=== PATIENT | male | born 1975 | race American Indian/Alaskan Native ===

== ENCOUNTER 2017-09-28 18:39 | Emergency (ER) | payer MEDICAID ==
--- NOTE | 2017-09-28 22:08 | Emergency Department Report ---
ED Lower Extremity HPI - General Chief Complaint: Extremity Problem,Nontraumatic Stated Complaint: KNEE PAIN Time Seen by Provider: 09/28/17 21:36 Source: patient Mode of arrival: Ambulatory Limitations: No Limitations - History of Present Illness Initial Comments: This is a 42-year-old -[place] male who presents with right knee pain with unknown injury that started last night while at work. Patient pursed reports working last night feeling a pop sensation while squatting down. He continued to work and heard a loud popping sensation on the second time while squatting down. Reports taken off work today because something just does not feel right. Denies currently taking anything for symptom relief. He does not believe this is a work related injury. Does not recall twisting or falling while at work. Denies recent injury, swelling, numbness or tingling, erythema, and warmth. Complaint: knee injury (right knee) -: Last night Injury: Knee: Right Type of Injury: unknown Place: work Severity: moderate Severity scale (0 -10): 6 Improves With: immobilization Worsens With: weight bearing, movement Associated Symptoms: snap/pop sensation, ambulatory - Related Data Previous Rx's Medication Instructions Recorded Last Taken Type Naproxen [Naprosyn TAB] 500 mg PO BID PRN #20 tablet 09/28/17 Unknown Rx Allergies Allergy/AdvReac Type Severity Reaction Status Date / Time No Known Allergies Allergy Unverified 09/28/17 19:19 ED Review of Systems ROS: Stated complaint: KNEE PAIN Other details as noted in HPI Constitutional: denies: chills, fever Respiratory: denies: cough, shortness of breath, wheezing Cardiovascular: denies: chest pain, palpitations Gastrointestinal: denies: abdominal pain, nausea, vomiting, diarrhea Musculoskeletal: arthralgia (right knee pain). denies: back pain, joint swelling Skin: denies: rash, lesions Neurological: denies: headache, weakness, numbness, paresthesias Psychiatric: denies: anxiety, depression ED Past Medical Hx - Past Medical History Previous Medical History?: Yes Additional medical history: cardiac pacemaker - Surgical History Past Surgical History?: Yes Additional Surgical History: cardiac pacemaker - Social History Smoking Status: Current Every Day Smoker Substance Use Type: None - Medications Home Medications: Home Medications Medication Instructions Recorded Confirmed Last Taken Type Naproxen [Naprosyn TAB] 500 mg PO BID PRN #20 tablet 09/28/17 Unknown Rx ED Physical Exam - General Limitations: No Limitations General appearance: alert, in no apparent distress - Respiratory Respiratory exam: Present: normal lung sounds bilaterally. Absent: respiratory distress - Cardiovascular Cardiovascular Exam: Present: regular rate, normal rhythm, normal heart sounds. Absent: systolic murmur, diastolic murmur, rubs, gallop - GI/Abdominal GI/Abdominal exam: Present: soft, normal bowel sounds. Absent: organomegaly, mass - Expanded Lower Extremity Exam Right Hip exam: Present: normal inspection, full ROM Upper Leg exam: Present: normal inspection, full ROM Knee exam: Present: full ROM, pain w/ pronation/supination, full knee extension. Absent: swelling, abrasion, laceration, ecchymosis, deformity, crepidus, erythema, effusion, posterior draw sign, pain/laxity with valgus, pain /laxity with varus Lower Leg exam: Present: normal inspection, full ROM Ankle exam: Present: normal inspection, full ROM Foot/Toe exam: Present: normal inspection, full ROM Neuro vascular tendon exam: Present: no vascular compromise Gait: Positive: observed and normal - Neurological Exam Neurological exam: Present: alert, oriented X3 - Psychiatric Psychiatric exam: Present: normal affect, normal mood - Skin Skin exam: Present: warm, dry, intact, normal color. Absent: rash ED Course Vital Signs 09/28/17 19:17 Temperature 98.0 F Pulse Rate 71 Respiratory 16 Rate Blood Pressure 143/99 O2 Sat by Pulse 98 Oximetry ED Lower Extremity MDM - Radiology Data Radiology results: report reviewed PROCEDURE: Right knee. TECHNIQUE: Three views. HISTORY: Right knee pain. COMPARISON: No prior studies are available for comparison. FINDINGS: The bones appear intact without fracture or dislocation. The joint spaces appear normal. The soft tissues are unremarkable. There is no evidence of a knee effusion. IMPRESSION: No significant abnormality. - Medical Decision Making This is a 42 y.o. male presents with right knee pain that started last night while at work. Patient was examined by me. Vitals are stable. In no acute distress. X-ray of right knee obtained and read by radiologist. No acute findings. Physical findings susceptible of muscle strain. Patient informed of results and given copy of report. Start naproxen and follow-up with primary care provider. He agrees with ER plan. Patient discharged home in stable condition. Follow up with PCP in 2-3 days. Critical care attestation.: If time is entered above; I have spent that time in minutes in the direct care of this critically ill patient, excluding procedure time. ED Disposition Clinical Impression: Right knee pain Qualifiers: Chronicity: acute Qualified Code(s): M25.561 - Pain in right knee Muscle strain of right knee Qualifiers: Encounter type: initial encounter Qualified Code(s): S86.911A - Strain of unspecified muscle(s) and tendon(s) at lower leg level, right leg, initial encounter Disposition: TO HOME OR SELFCARE Is pt being admited?: No Does the pt Need Aspirin: No Condition: Stable Instructions: Muscle Strain (ED), Knee Pain (ED), Knee Exercises (GEN) Additional Instructions: Rest Use ice or heat on affected area for 20 minutes and off for 2 hours. Take pain medication twice a day as needed for pain. Follow up with Primary Care Provider in 2-3 days. Prescriptions: Naproxen [Naprosyn TAB] 500 mg PO BID PRN #20 tablet PRN Reason: Pain Referrals: [facility] [Outside] - 3-5 Days [facility] [Outside] - 3-5 Days [facility] [Outside] - 3-5 Days Time of Disposition: 22:58 Print Language: [place]
--- NOTE | 2017-09-28 22:45 | XRay Report ---
FINAL REPORT PROCEDURE: Right knee. TECHNIQUE: Three views. HISTORY: Right knee pain. COMPARISON: No prior studies are available for comparison. FINDINGS: The bones appear intact without fracture or dislocation. The joint spaces appear normal. The soft tissues are unremarkable. There is no evidence of a knee effusion. IMPRESSION: No significant abnormality.
[2017-09-28 23:01] VITALS: BP 131/92
== END 2017-09-28 23:05 | disposition home or self-care (01) ==
LOC: ED 18:39
DX: S86.911A Strain of unspecified muscle(s) and tendon(s) at lower leg level, right leg, initial encounter (principal); M25.561 Pain in right knee; F17.200 Nicotine dependence, unspecified, uncomplicated; Z95.0 Presence of cardiac pacemaker; X58.XXXA Exposure to other specified factors, initial encounter; Y93.89 Activity, other specified; Y99.8 Other external cause status; Y92.89 Other specified places as the place of occurrence of the external cause

== ENCOUNTER 2017-12-30 22:48 | Inpatient (IN) | payer MEDICAID ==
--- NOTE | 2017-12-30 23:59 | XRay Report ---
FINAL REPORT PROCEDURE: XR CHEST ROUTINE 2V TECHNIQUE: PA and lateral chest radiographs were obtained. CPT 63891 HISTORY: ALEXEI COMPARISON: No prior studies are available for comparison. FINDINGS: Heart: Normal. Mediastinum/Vessels: Mild degree pulmonary venous congestion is noted. Lungs/Pleural space: There is mild degree prominence of interstitial markings. Bony thorax: No acute osseous abnormality. Other: A bipolar cardiac device is noted on the left side with its leads in place IMPRESSION: Findings are most consistent with early CHF..
[2017-12-31] MEDS ORDERED: NITRO-BID 2% TP ONE (03:31)
[2017-12-31 03:48] LABS: Basophils # (Auto) 0.1 K/mm3 (0.0-0.1); Basophils % (Auto) 0.6 % (0.0-1.8); Eosinophils % (Auto) 0.5 % (0.0-4.3); Hemoglobin 14.6 gm/dl (11.8-15.2); Lymphocytes % (Auto) 23.2 % (13.4-35.0); Mean Corpuscular HGB Conc 33 % (32-34); Mean Corpuscular Hemoglobin 31 pg (28-32); Mean Corpuscular Volume 94 fl (84-94); Monocytes # (Auto) 0.8 K/mm3 (0.0-0.8); Monocytes % (Auto) 9.7 % (0.0-7.3); Platelet Count 231 K/mm3 (140-440); Red Blood Count 4.67 M/mm3 (3.65-5.03); Red Cell Distribution Width 13.7 % (13.2-15.2)
[2017-12-31 04:00] LABS: INR 1.08 (0.87-1.13)
[2017-12-31 04:01] LABS: Partial Thromboplastin Time 29.3 Sec. (24.2-36.6)
[2017-12-31 04:04] LABS: Creatine Kinase MB 7.3 ng/mL (0.0-4.0)
[2017-12-31 04:05] LABS: Alanine Aminotransferase 20 units/L (7-56); Albumin 3.6 g/dL (3.9-5); BUN/Creatinine Ratio 8; Blood Urea Nitrogen 7 mg/dL (9-20); Calcium 8.4 mg/dL (8.4-10.2); Hemolysis Index 3
[2017-12-31] MEDS ORDERED: K-DUR PO ONE ×2 (04:36→07:45)
--- NOTE | 2017-12-31 04:38 | Emergency Department Report ---
ED Shortness of Breath HPI - General Chief Complaint: Dyspnea/Respdistress Stated Complaint: SOB/ CHEST PAIN Time Seen by Provider: 12/31/17 03:16 Source: patient Mode of arrival: Ambulatory Limitations: No Limitations - History of Present Illness Initial Comments: 42-year-old male with a past medical history hypertension, previous history of diabetes, and a pacemaker presents to the hospital complaining of shortness of breath 1 week. Patient also having intermittent chest pressure without aggravating or alleviating factors. Patient also complains of worsening orthopnea. No calf tenderness, recent travel, or leg asymmetry. Patient has not taken any medications 1 year since his gyroscope repairer told him everything was okay. Patient stopped the medications on his own. He also states that he lost a lot of weight and thought that caused improvement in his previous conditions. - Related Data Previous Rx's Medication Instructions Recorded Last Taken Type Naproxen [Naprosyn TAB] 500 mg PO BID PRN #20 tablet 09/28/17 Unknown Rx Allergies Allergy/AdvReac Type Severity Reaction Status Date / Time No Known Allergies Allergy Unverified 09/28/17 19:19 ED Review of Systems ROS: Stated complaint: SOB/ CHEST PAIN Other details as noted in HPI Comment: All other systems reviewed and negative ED Past Medical Hx - Past Medical History Previous Medical History?: Yes Hx Hypertension: Yes (noncompliant) Hx Diabetes: Yes (noncompliant with meds) Additional medical history: cardiac pacemaker - Surgical History Past Surgical History?: Yes Additional Surgical History: cardiac pacemaker - Social History Smoking Status: Current Every Day Smoker Substance Use Type: Alcohol - Medications Home Medications: Home Medications Medication Instructions Recorded Confirmed Last Taken Type Naproxen [Naprosyn TAB] 500 mg PO BID PRN #20 tablet 09/28/17 Unknown Rx ED Physical Exam - General Limitations: No Limitations - Other Other exam information: General: No limitations, patient is alert in no acute distress Head exam: Atraumatic, normocephalic Eyes exam: Normal appearance ENT: Moist mucous membrane, normal oropharynx Neck exam: Normal inspection, full range of motion, no meningismus nontender Respiratory exam: Clear to auscultation bilateral, no wheezes, rales, crackles. Mild diminished breath sounds at the base Cardiovascular: Normal rate and rhythm, chest wall nontender Abdomen: Soft, nondistended, and nontender, with normal bowel sounds, no rebound, or guarding Extremity: Full range of motion normal inspection no deformity, no calf tenderness, no leg asymmetry, no significant edema Back: Normal Inspection, full range of motion, no tenderness Neurologic: Alert, oriented x3, cranial nerves intact, no motor or sensory deficit Psychiatric: normal affect, normal mood Skin: Warm, dry, intact ED Course Vital Signs 12/30/17 12/31/17 12/31/17 23:04 03:21 03:23 Temperature 98.4 F Pulse Rate 126 H 102 H 101 H Respiratory 14 15 21 Rate Blood Pressure 163/115 Blood Pressure [Left] O2 Sat by Pulse 93 95 94 Oximetry 12/31/17 12/31/17 12/31/17 03:24 03:25 03:27 Temperature Pulse Rate 103 H Respiratory 20 24 Rate Blood Pressure Blood Pressure 167/115 [Left] O2 Sat by Pulse 98 92 Oximetry ED Medical Decision Making - Lab Data Result diagrams: 12/31/17 03:35 12/31/17 03:35 Lab Results 12/31/17 12/31/17 12/31/17 Range/Units 03:15 03:35 03:35 WBC 8.5 (4.5-11.0) K/mm3 RBC 4.67 (3.65-5.03) M/mm3 Hgb 14.6 (11.8-15.2) gm/dl Hct 44.0 (35.5-45.6) % MCV 94 (84-94) fl MCH 31 (28-32) pg MCHC 33 (32-34) % RDW 13.7 (13.2-15.2) % Plt Count 231 (140-440) K/mm3 Lymph % (Auto) 23.2 (13.4-35.0) % [place] % (Auto) 9.7 H (0.0-7.3) % Eos % (Auto) 0.5 (0.0-4.3) % Baso % (Auto) 0.6 (0.0-1.8) % Lymph # 2.0 (1.2-5.4) K/mm3 [place] # 0.8 (0.0-0.8) K/mm3 Eos # 0.0 (0.0-0.4) K/mm3 Baso # 0.1 (0.0-0.1) K/mm3 Seg Neutrophils % 66.0 (40.0-70.0) % Seg Neutrophils # 5.6 (1.8-7.7) K/mm3 PT 14.5 (12.2-14.9) Sec. INR 1.08 (0.87-1.13) APTT 29.3 (24.2-36.6) Sec. Sodium (137-145) mmol/L Potassium (3.6-5.0) mmol/L Chloride (98-107) mmol/L Carbon Dioxide (22-30) mmol/L Anion Gap mmol/L BUN (9-20) mg/dL Creatinine (0.8-1.5) mg/dL Estimated GFR ml/min BUN/Creatinine Ratio % Glucose (75-100) mg/dL POC Glucose 135 H (70-105) Calcium (8.4-10.2) mg/dL Total Bilirubin (0.1-1.2) mg/dL AST (5-40) units/L ALT (7-56) units/L Alkaline Phosphatase (35-129) units/L Total Creatine Kinase (55-170) units/L CK-MB (CK-2) (0.0-4.0) ng/mL CK-MB (CK-2) Rel Index (0-4) Troponin T (0.00-0.029) ng/mL NT-Pro-B Natriuret Pep (0-450) pg/mL Total Protein (6.3-8.2) g/dL Albumin (3.9-5) g/dL Albumin/Globulin Ratio % 12/31/18 Range/Units 03:35 WBC (4.5-11.0) K/mm3 RBC (3.65-5.03) M/mm3 Hgb (11.8-15.2) gm/dl Hct (35.5-45.6) % MCV (84-94) fl MCH (28-32) pg MCHC (32-34) % RDW (13.2-15.2) % Plt Count (140-440) K/mm3 Lymph % (Auto) (13.4-35.0) % [place] % (Auto) (0.0-7.3) % Eos % (Auto) (0.0-4.3) % Baso % (Auto) (0.0-1.8) % Lymph # (1.2-5.4) K/mm3 [place] # (0.0-0.8) K/mm3 Eos # (0.0-0.4) K/mm3 Baso # (0.0-0.1) K/mm3 Seg Neutrophils % (40.0-70.0) % Seg Neutrophils # (1.8-7.7) K/mm3 PT (12.2-14.9) Sec. INR (0.87-1.13) APTT (24.2-36.6) Sec. Sodium 140 (137-145) mmol/L Potassium 3.3 L (3.6-5.0) mmol/L Chloride 103.0 (98-107) mmol/L Carbon Dioxide 22 (22-30) mmol/L Anion Gap 18 mmol/L BUN 7 L (9-20) mg/dL Creatinine 0.9 (0.8-1.5) mg/dL Estimated GFR > 60 ml/min BUN/Creatinine Ratio 8 % Glucose 142 H (75-100) mg/dL POC Glucose (70-105) Calcium 8.4 (8.4-10.2) mg/dL Total Bilirubin 0.50 (0.1-1.2) mg/dL AST 26 (5-40) units/L ALT 20 (7-56) units/L Alkaline Phosphatase 59 (35-129) units/L Total Creatine Kinase 688 H (55-170) units/L CK-MB (CK-2) 7.3 H (0.0-4.0) ng/mL CK-MB (CK-2) Rel Index 1.0 (0-4) Troponin T 0.019 (0.00-0.029) ng/mL NT-Pro-B Natriuret Pep 1240 H (0-450) pg/mL Total Protein 6.7 (6.3-8.2) g/dL Albumin 3.6 L (3.9-5) g/dL Albumin/Globulin Ratio 1.2 % - EKG Data -: EKG Interpreted by Me (old inferior infarct) EKG shows normal: sinus rhythm, axis (qrs -35), QRS complexes (qrs 100), ST-T waves (no ST elevation) Rate: tachycardia (113) - EKG Data When compared to previous EKG there are: previous EKG unavailable - Radiology Data Radiology results: report reviewed FINAL REPORT PROCEDURE: XR CHEST ROUTINE 2V TECHNIQUE: PA and lateral chest radiographs were obtained. CPT 89741 HISTORY: ALEXEI COMPARISON: No prior studies are available for comparison. FINDINGS: Heart: Normal. Mediastinum/Vessels: Mild degree pulmonary venous congestion is noted. Lungs/Pleural space: There is mild degree prominence of interstitial markings. Bony thorax: No acute osseous abnormality. Other: A bipolar cardiac device is noted on the left side with its leads in place IMPRESSION: Findings are most consistent with early CHF.. - Medical Decision Making Shortness of breath Chest x-ray consistent with CHF as read by radiologist. Elevated BNP Negative troponin Patient treated given nitroglycerin paste and IV potassium Aspirin provided Hypokalemia By mouth potassium provided Hospitalist informed for admission - Differential Diagnosis CHF, hypertensive emergency, pulmonary embolism, stable angina, OR Critical Care Time: No Critical care attestation.: If time is entered above; I have spent that time in minutes in the direct care of this critically ill patient, excluding procedure time. ED Disposition Clinical Impression: CHF exacerbation, Uncontrolled hypertension, Pacemaker, Noncompliance with medication regimen, Hypokalemia Disposition: 09 OP ADMIT IP TO THIS HOSP Is pt being admited?: Yes Does the pt Need Aspirin: Yes Condition: Stable Time of Disposition: 04:38 (Dr Priest/hosp)
[2017-12-31] MEDS ORDERED: LASIX IV ONE ×2 (05:24→05:25)
[2017-12-31] MEDS ORDERED: ASPIRIN PO ONE (05:27)
--- NOTE | 2017-12-31 07:28 | History and Physical Report ---
History of Present Illness Date of examination: 12/31/17 Chief complaint: Shortness of Breath History of present illness: Patient is a 42-year-old man with a history of tobacco and alcohol dependency, CHF s/p biventricular pacemaker, hypertension and DM type 2, not on any medications (drinks apple cidar vinegar) who presents to [facility] ED with ALEXEI at work last night. Patient c/o progressive worsening intermittent severe SOB with activity x 1 week that was not relieved by rest last night. There are no prior hospitalizations in our EMR. The SOB is associated with intermittent chest pressure without aggravating or alleviating factors. Patient also complains of worsening orthopnea. No calf tenderness, recent travel, or leg asymmetry. Patient has not taken any medications 1 year since his cotton ginner helper told him everything was okay. Patient stopped the medications on his own. In the ED, patient's O2 sat will drop to 88-89% while sleeping. Patient placed on 2 L on nasal cannula. PMH: as hpi, denies AMI PSH: PPM/AICD inserted 2008 [facility] and "been a minute since it has been checked" SH: tobacco dependency-1 pack per week, 12 pack of beer/day mostly on weekends, last drink was morning around 7-8amm after work, denies illegal drug use FH: 2 Aunts with unspecified heart problem, he doesn't know of anyone with MO, DM, hypertension ROS: Constitutional: denies: fever ENT: denies: throat or neck pain Respiratory:+ cough, shortness of breath Cardiovascular: + chest pain Endocrine: denies weight loss Gastrointestinal: denies: abdominal pain, nausea Genitourinary: denies: dysuria Rectal: denies no incontinence, no bleeding, no itching, no discharge Musculoskeletal: denies swelling, myaglia, muscle weakness Skin: denies: rash Neurological: denies: headache Hematological/Lymphatic: denies: easy bleeding or easy bruising Allergic/Immunologic: no urticaria, no allergic rhinitis, no anaphylaxis Psych: denies sadness or hopelessness, SI/HI Medications and Allergies Allergies Allergy/AdvReac Type Severity Reaction Status Date / Time No Known Allergies Allergy Unverified 09/28/17 19:19 Home Medications Medication Instructions Recorded Confirmed Last Taken Type Naproxen [Naprosyn TAB] 500 mg PO BID PRN #20 tablet 09/28/17 Unknown Rx Exam - Physical Exam Narrative exam: GEN: WDWN, NAD, Awake, Alert, Orientated x 3 HEENT: NCAT, EOMI, PERRL, OP Clear NECK: supple, no adenopathy, no thyromegaly,+ JVD CVS/HEART: regular tachycardia, normal S1S2, pulses present bilaterally CHEST/LUNGS: diminished bs bilateral with bibasilar crackles Symmetrical chest expansion, good air entry bilaterally GI/Abdomen: soft, NTND, good bowel sounds, no guarding or rebound /Bladder: no suprapubic tenderness, no CVA or paraspinal tenderness EXT/Skin: no ble edema, no obvious rash MSK: FROM x 4 Neuro: CN 2-12 grossly intact, no new focal deficits Psych: calm - Constitutional Vitals: Temp Pulse Resp BP Pulse Ox 98.4 F 105 H 25 H 135/99 95 12/30/17 23:04 12/31/17 07:03 12/31/17 07:03 12/31/17 07:03 12/31/17 07:03 Results - Labs CBC & Chem 7: 12/31/17 03:35 12/31/17 03:35 Labs: Abnormal lab results 12/31/17 12/31/17 12/31/17 Range/Units 03:15 03:35 03:35 [place] % (Auto) 9.7 H (0.0-7.3) % Potassium 3.3 L (3.6-5.0) mmol/L BUN 7 L (9-20) mg/dL Glucose 142 H (75-100) mg/dL POC Glucose 135 H (70-105) Total Creatine Kinase 688 H (55-170) units/L CK-MB (CK-2) 7.3 H (0.0-4.0) ng/mL NT-Pro-B Natriuret Pep 1240 H (0-450) pg/mL Albumin 3.6 L (3.9-5) g/dL Assessment and Plan Patient is a 42-year-old man with a history of hypertension, previous history of diabetes not on any medications, and a pacemaker who presents to [facility] ED with ALEXEI at work last night. Patient c/o progressive worsening intermittent severe SOB with activity x 1 week that was not relieved by rest last night. There are no prior hospitalizations in our EMR. The SOB is associated with intermittent chest pressure without aggravating or alleviating factors. Patient also complains of worsening orthopnea. No calf tenderness, recent travel, or leg asymmetry. Patient has not taken any medications 1 year since his cotton ginner helper told him everything was okay. Patient stopped the medications on his own. In the ED, patient's O2 sat will drop to 88-89% while sleeping. Patient placed on 2 L on nasal cannula. * 2v CXR reported as findings most consistent with early CHF -Acute on chronic HFrEF suspected: Admit to telemetry, treat with iv lasix, ntg , consult Cardiology, order ECHO -Acute hypoxic respiratory failure due to CHF: treat with O2, nebs and treat the CHF -Chest pains: repeat troponin, get ECHO, consult Cardiology, ?ischemic evaluation once euvolemic -Accelerated hypertension with urgency: treat with iv hydralazine prn and lililan/ arb, cardiac diet -PPM: ?needs intergrating -Hypokalemia: replace, recheck in am, along with magnesium -Hyperglycemia, mild, history of Type 2 DM: check a1c, treat with ssi, ada diet -Mild Rhabdomyolysis, cpk 688: treat with lasix, repeat CPK in am, hold IVF due to CHF -Tobacco dependency: juvenile counselor on stopping -DVT prophylaxis: sq heparin CCT 32 minutes
[2017-12-31] MEDS ORDERED: COZAAR ONE (08:47)
[2017-12-31] MEDS: COZAAR PO SCH ×2 (08:49→09:36)
[2017-12-31] MEDS: PROTONIX PO SCH ×2 (08:49→09:37)
[2017-12-31] MEDS ORDERED: TYLENOL PO PRN (09:30)
[2017-12-31] MEDS ORDERED: D50W (25GM) Syringe IV PRN (09:30)
[2017-12-31] MEDS ORDERED: APRESOLINE IV PRN (09:30)
[2017-12-31] MEDS ORDERED: NORCO 5/325 PO PRN (09:30)
[2017-12-31] MEDS ORDERED: ZOFRAN IV PRN (09:30)
[2017-12-31] MEDS: HEPARIN SUB-Q SCH ×2 (09:37→23:00)
[2017-12-31] MEDS ORDERED: AMBIEN PO PRN (10:00)
[2017-12-31] MEDS ORDERED: K-DUR PO NR (10:00)
[2017-12-31] MEDS ORDERED: PROVENTIL IH PRN (12:00)
--- NOTE | 2017-12-31 12:44 | Consultation ---
History of Present Illness Consult date: 12/31/17 Requesting physician: JUDI MITCHELL Consult reason: congestive heart failure History of present illness: The patient is a 42-year-old man with a past medical history significant for CMP , HF, AICD in situ (biotronik), HTN, DM, tobacco use and occasional ETOH use ( drinks beer on weekends). He is previously unknown to our practice and states that in the past he has been seen by [facility]. He is currently not on any prescription medications. He presented with complaints of progressively worsening SOB and orthopnea for 1 week. He states that he underwent AICD implantation in 2007 and AICD exchange in 05/2016. He has not seen a engine pilot since his AICD exchange because he was reportedly told by his engine pilot that his "heart was 100% fine". He denies any chest pain, palpitations, n/v, diaphoresis, dizziness or syncope. Past History Past Medical History: diabetes, heart failure, hypertension Past Surgical History: Other (AICD) Social history: smoking, alcohol abuse. denies: prescription drug abuse, IV drug use Medications and Allergies Allergies Allergy/AdvReac Type Severity Reaction Status Date / Time No Known Allergies Allergy Unverified 09/28/17 19:19 Home Medications Medication Instructions Recorded Confirmed Last Taken Type No Known Home Medications [No 12/31/17 12/31/17 Unknown History Reported Home Medications] Active Meds: Active Medications Acetaminophen (Tylenol) 650 mg PO Q6H PRN PRN Reason: Non Cardiac Pain or Temp>100.5 Acetaminophen/Hydrocodone Bitart ([place] 5/325) 1 each PO Q4H PRN PRN Reason: Pain, Moderate (4-6) Albuterol (Proventil) 2.5 mg IH Q6HRT PRN PRN Reason: Shortness Of Breath Albuterol/Ipratropium (Duoneb *Not For Prn Use*) 1 ampul IH BIDRT RODRIGO Aspirin (Aspirin) 325 mg PO QDAY RODRIGO Dextrose (D50w (25gm) Syringe) 50 ml IV PRN PRN PRN Reason: Hypoglycemia Furosemide (Lasix) 40 mg IV 0600,1800 RODRIGO Heparin Sodium (Porcine) (Heparin) 5,000 unit SUB-Q Q12HR RODRIGO Last Admin: 12/31/17 09:37 Dose: 5,000 unit Hydralazine HCl (Apresoline) 10 mg IV Q4H PRN PRN Reason: Blood Pressure Insulin Human Lispro (Humalog) 0 unit SUB-Q [facility]; Protocol Losartan Potassium (Cozaar) 25 mg PO QDAY [facility] Last Admin: 12/31/17 09:36 Dose: Not Given Ondansetron HCl (Zofran) 4 mg IV Q4H PRN PRN Reason: Nausea And Vomiting Pantoprazole Sodium (Protonix) 40 mg PO QDAY [facility] Last Admin: 12/31/17 09:37 Dose: Not Given Zolpidem Tartrate (Ambien) 5 mg PO QHS PRN PRN Reason: Sleep Review of Systems Constitutional: no weight loss, no weight gain, no fever, no chills, no sweats Ears, nose, mouth and throat: no ear pain, no nose pain, no sinus pressure, no sinus pain Cardiovascular: orthopnea, shortness of breath, dyspnea on exertion, no chest pain, no palpitations, no rapid/irregular heart beat, no edema, no syncope, no lightheadedness, no leg edema Respiratory: shortness of breath, dyspnea on exertion, no cough, no congestion, no wheezing, no pain on inspiration Gastrointestinal: no abdominal pain, no nausea, no vomiting, no diarrhea, no constipation, no change in bowel habits Genitourinary Male: no dysuria, no hematuria, no flank pain, no discharge, no urinary frequency, no urinary hesitancy Musculoskeletal: no neck stiffness, no neck pain, no shooting arm pain, no arm numbness/tingling, no low back pain, no shooting leg pain, no leg numbness/ tingling, no redness of joints Integumentary: no rash, no pruritis, no redness, no sores, no wounds Neurological: no head injury, no paralysis, no weakness, no parathesias, no numbness, no tingling, no seizures, no syncope Psychiatric: no anxiety Endocrine: no cold intolerance, no heat intolerance Hematologic/Lymphatic: no easy bruising, no easy bleeding, no lymphadenopathy Allergic/Immunologic: no urticaria, no wheezing, no persistent infections Physical Examination Vital Signs Temp Pulse Resp BP Pulse Ox 98.4 F 126 H 14 163/115 93 12/30/17 23:04 12/30/17 23:04 12/30/17 23:04 12/30/17 23:04 12/30/17 23:04 General appearance: no acute distress HEENT: Positive: PERRL, Normocephaly, Mucus Membranes Moist Neck: Positive: neck supple, trachea midline Cardiac: Positive: Reg Rate and Rhythm, S1/S2 Lungs: Positive: clear to auscultation Neuro: Positive: Grossly Intact, Cranial Nerve 2-12 Intact Abdomen: Positive: Soft. Negative: Tender Skin: Positive: Clear. Negative: Rash, Wound Musculoskeletal: No Fluid Collection, No Pain, Normal Range of Motion Extremities: Absent: edema Results 12/31/17 03:35 12/31/17 03:35 Cardiac Enzymes 12/31/17 Range/Units 03:35 AST 26 (5-40) units/L CK-MB (CK-2) 7.3 H (0.0-4.0) ng/mL Coagulation 12/31/17 Range/Units 03:35 PT 14.5 (12.2-14.9) Sec. INR 1.08 (0.87-1.13) APTT 29.3 (24.2-36.6) Sec. CBC 12/31/17 Range/Units 03:35 WBC 8.5 (4.5-11.0) K/mm3 RBC 4.67 (3.65-5.03) M/mm3 Hgb 14.6 (11.8-15.2) gm/dl Hct 44.0 (35.5-45.6) % Plt Count 231 (140-440) K/mm3 Lymph # 2.0 (1.2-5.4) K/mm3 [place] # 0.8 (0.0-0.8) K/mm3 Eos # 0.0 (0.0-0.4) K/mm3 Baso # 0.1 (0.0-0.1) K/mm3 Comprehensive Metabolic Panel 12/31/17 Range/Units 03:35 Sodium 140 (137-145) mmol/L Potassium 3.3 L (3.6-5.0) mmol/L Chloride 103.0 (98-107) mmol/L Carbon Dioxide 22 (22-30) mmol/L BUN 7 L (9-20) mg/dL Creatinine 0.9 (0.8-1.5) mg/dL Glucose 142 H (75-100) mg/dL Calcium 8.4 (8.4-10.2) mg/dL AST 26 (5-40) units/L ALT 20 (7-56) units/L Alkaline Phosphatase 59 (35-129) units/L Total Protein 6.7 (6.3-8.2) g/dL Albumin 3.6 L (3.9-5) g/dL - Imaging and Cardiology Echo: pending EKG: report reviewed, image reviewed EKG interpretations - Telemetry EKG Rhythm: Sinus Rhythm - EKG Sinus rhythms and dysrhythmias: sinus tachycardia Myocardial infarction: inferior [place] (old age inde Assessment and Plan Initiate coreg. Cont losartan and IV lasix. Replete K+. Obtain echo. Interrogate AICD - pt reports that the device belongs to [employer]. The patient has been seen in conjunction with Dr. Evans who agrees with the assessment and plan of care. - Patient Problems (1) Acute heart failure Current Visit: Yes Status: Acute (2) Automatic implantable cardioverter-defibrillator in situ Current Visit: Yes Status: Acute (3) Diabetes Current Visit: Yes Status: Acute (4) Uncontrolled hypertension Current Visit: Yes Status: Acute (5) Hypokalemia Current Visit: Yes Status: Acute (6) Rhabdomyolysis Current Visit: Yes Status: Suspected
[2017-12-31] MEDS: HumaLOG SUB-Q SCH ×3 (13:04→23:00)
--- NOTE | 2017-12-31 13:27 | Event Note ---
Date: 12/31/17 Pt's AICD actually belongs to [employer]. [employer] rep contacted for interrogation. Patricia MERAZ NP / DR. WHITE
[2017-12-31] MEDS: DUONEB *Not for PRN Use IH SCH ×2 (17:33→21:55)
[2017-12-31] MEDS: LASIX IV SCH (19:04)
[2017-12-31] MEDS: COREG PO SCH (23:00)
[2018-01-01] MEDS: LASIX IV SCH ×2 (06:38→17:20)
[2018-01-01] MEDS: DUONEB *Not for PRN Use IH SCH ×2 (07:13→21:58)
[2018-01-01 07:22] LABS: Hematocrit 43.5 % (35.5-45.6); Hemoglobin 14.5 gm/dl (11.8-15.2); Mean Corpuscular HGB Conc 33 % (32-34); Mean Corpuscular Hemoglobin 31 pg (28-32); Mean Corpuscular Volume 93 fl (84-94); Platelet Count 217 K/mm3 (140-440); Red Blood Count 4.68 M/mm3 (3.65-5.03)
--- NOTE | 2018-01-01 07:22 | Progress Note ---
Assessment and Plan continue current mgt Subjective Date of service: 01/01/18 Interval history: echo reveals severe lv systolic dysfunction with an lvef of 20-25% no new card complaints Objective Vital Signs Temp Pulse Resp BP BP Pulse Ox 01/01/18 04:59 97.9 F 18 131/86 01/01/18 01:00 79 12/31/17 23:50 98.3 F 18 122/73 12/31/17 23:46 98.3 F 18 143/106 12/31/17 23:00 79 18 143/106 97 12/31/17 21:17 18 12/31/17 17:00 83 12/31/17 16:31 98.1 F 78 18 138/104 98 12/31/17 14:17 97.9 F 84 18 121/89 97 12/31/17 13:11 90 18 129/102 95 12/31/17 13:01 86 22 97 12/31/17 12:00 82 14 132/92 95 12/31/17 11:00 87 13 122/81 95 12/31/17 10:00 90 17 143/96 95 12/31/17 09:00 83 14 131/93 93 12/31/17 08:00 97 H 15 127/93 95 - Physical Examination HEENT: Positive: PERRL, Normocephaly, Mucus Membranes Moist Neck: Positive: neck supple, trachea midline Cardiac: Positive: Reg Rate and Rhythm Lungs: Positive: clear to auscultation Neuro: Positive: Grossly Intact, Cranial Nerve 2-12 Intact Abdomen: Positive: Soft. Negative: Tender Skin: Positive: Clear. Negative: Rash, Wound Musculoskeletal: No Fluid Collection, No Pain, Normal Range of Motion Extremities: Absent: edema - Imaging and Cardiology EKG: report reviewed, image reviewed Echo: pending - EKG Sinus rhythms and dysrhythmias: sinus tachycardia Myocardial infarction: inferior [place] (old age inde
[2018-01-01] MEDS: HumaLOG SUB-Q SCH ×4 (07:30→22:35)
[2018-01-01 07:33] LABS: BUN/Creatinine Ratio 16; Blood Urea Nitrogen 14 mg/dL (9-20); Calcium 8.9 mg/dL (8.4-10.2); Chol/HDL Ratio 3.56 %; HDL Cholesterol 41 mg/dL (40-59); Hemolysis Index 7; LDL Cholesterol,Direct 95 mg/dL (50-130)
[2018-01-01] MEDS: ASPIRIN PO SCH (12:12)
[2018-01-01] MEDS: COREG PO SCH ×2 (12:13→22:34)
[2018-01-01] MEDS: HEPARIN SUB-Q SCH ×2 (12:13→22:35)
[2018-01-01] MEDS: COZAAR PO SCH (12:13)
[2018-01-01] MEDS: PROTONIX PO SCH (12:15)
--- NOTE | 2018-01-01 15:24 | Progress Note ---
Assessment and Plan Assessment and plan: Patient is a 42-year-old man with a history of hypertension, previous history of diabetes not on any medications, and a pacemaker who presents to [facility] ED with ALEXEI at work last night. Patient c/o progressive worsening intermittent severe SOB with activity x 1 week that was not relieved by rest last night. There are no prior hospitalizations in our EMR. The SOB is associated with intermittent chest pressure without aggravating or alleviating factors. Patient also complains of worsening orthopnea. No calf tenderness, recent travel, or leg asymmetry. Patient has not taken any medications 1 year since his interactive digital media specialist told him everything was okay. Patient stopped the medications on his own. In the ED, patient's O2 sat will drop to 88-89% while sleeping. Patient placed on 2 L on nasal cannula. * 2v CXR reported as findings most consistent with early CHF -Acute on chronic HFrEF suspected: Admit to telemetry, treat with iv lasix, ntg , consult Cardiology, order ECHO -Acute hypoxic respiratory failure due to CHF: treat with O2, nebs and treat the CHF -Chest pains: repeat troponin, get ECHO, consult Cardiology, ?ischemic evaluation once euvolemic -Accelerated hypertension with urgency: treat with iv hydralazine prn and lillian/ arb, cardiac diet -PPM: ?needs intergrating -Hypokalemia: replace, recheck in am, along with magnesium -Hyperglycemia, mild, history of Type 2 DM: check a1c, treat with ssi, ada diet -Mild Rhabdomyolysis, cpk 688: treat with lasix, repeat CPK in am, hold IVF due to CHF -Tobacco dependency: marriage counselor on stopping -DVT prophylaxis: sq heparin O2 weaning trails today. Hopefully d/c in 1-2 days if off o2 and cleared by Cardiology History Interval history: Patient was seen and examined. Follow-up on current diagnosis of sob. Overnight uneventful. Patient denies any chest pain, shortness breath, nausea/vomiting or severe headaches. Imaging, nursing note, chart, labs and old chart reviewed. Discussed with patient. Hospitalist Physical - Physical exam Narrative exam: GEN: WDWN, NAD, Awake, Alert, Orientated x 3 HEENT: NCAT, EOMI, PERRL, OP Clear NECK: supple, no adenopathy, no thyromegaly,+ JVD CVS/HEART: regular tachycardia, normal S1S2, pulses present bilaterally CHEST/LUNGS: diminished bs bilateral with bibasilar crackles Symmetrical chest expansion, good air entry bilaterally GI/Abdomen: soft, NTND, good bowel sounds, no guarding or rebound /Bladder: no suprapubic tenderness, no CVA or paraspinal tenderness EXT/Skin: no ble edema, no obvious rash MSK: FROM x 4 Neuro: CN 2-12 grossly intact, no new focal deficits Psych: calm - Constitutional Vitals: Temp Pulse Resp BP Pulse Ox 98.2 F 72 16 122/88 93 01/01/18 11:57 01/01/18 12:13 01/01/18 11:57 01/01/18 12:13 01/01/18 11:57 General appearance: Present: no acute distress Results - Labs CBC & Chem 7: 01/01/18 05:15 01/01/18 05:15 Labs: Laboratory Last Values WBC 6.3 K/mm3 (4.5-11.0) 01/01/18 05:15 RBC 4.68 M/mm3 (3.65-5.03) 01/01/18 05:15 Hgb 14.5 gm/dl (11.8-15.2) 01/01/18 05:15 Hct 43.5 % (35.5-45.6) 01/01/18 05:15 MCV 93 fl (84-94) 01/01/18 05:15 MCH 31 pg (28-32) 01/01/18 05:15 MCHC 33 % (32-34) 01/01/18 05:15 RDW 13.0 % (13.2-15.2) L 01/01/18 05:15 Plt Count 217 K/mm3 (140-440) 01/01/18 05:15 Lymph % (Auto) 23.2 % (13.4-35.0) 12/31/17 03:35 [place] % (Auto) 9.7 % (0.0-7.3) H 12/31/17 03:35 Eos % (Auto) 0.5 % (0.0-4.3) 12/31/17 03:35 Baso % (Auto) 0.6 % (0.0-1.8) 12/31/17 03:35 Lymph # 2.0 K/mm3 (1.2-5.4) 12/31/17 03:35 [place] # 0.8 K/mm3 (0.0-0.8) 12/31/17 03:35 Eos # 0.0 K/mm3 (0.0-0.4) 12/31/17 03:35 Baso # 0.1 K/mm3 (0.0-0.1) 12/31/17 03:35 Seg Neutrophils % 66.0 % (40.0-70.0) 12/31/17 03:35 Seg Neutrophils # 5.6 K/mm3 (1.8-7.7) 12/31/17 03:35 PT 14.5 Sec. (12.2-14.9) 12/31/17 03:35 INR 1.08 (0.87-1.13) 12/31/17 03:35 APTT 29.3 Sec. (24.2-36.6) 12/31/17 03:35 Sodium 141 mmol/L (137-145) 01/01/18 05:15 Potassium 3.4 mmol/L (3.6-5.0) L 01/01/18 05:15 Chloride 101.8 mmol/L (98-107) 01/01/18 05:15 Carbon Dioxide 26 mmol/L (22-30) 01/01/18 05:15 Anion Gap 17 mmol/L 01/01/18 05:15 BUN 14 mg/dL (9-20) 01/01/18 05:15 Creatinine 0.9 mg/dL (0.8-1.5) 01/01/18 05:15 Estimated GFR > 60 ml/min 01/01/18 05:15 BUN/Creatinine Ratio 16 % 01/01/18 05:15 Glucose 203 mg/dL (75-100) H 01/01/18 05:15 POC Glucose 145 (70-105) H 01/01/18 11:57 Hemoglobin A1c 6.3 % (4-6) H 12/31/17 03:12 Calcium 8.9 mg/dL (8.4-10.2) 01/01/18 05:15 Magnesium 1.60 mg/dL (1.7-2.3) L 01/01/18 05:15 Total Bilirubin 0.50 mg/dL (0.1-1.2) 12/31/17 03:35 AST 26 units/L (5-40) 12/31/17 03:35 ALT 20 units/L (7-56) 12/31/17 03:35 Alkaline Phosphatase 59 units/L (35-129) 12/31/17 03:35 Total Creatine Kinase 361 units/L (55-170) H 01/01/18 05:15 CK-MB (CK-2) 7.3 ng/mL (0.0-4.0) H 12/31/17 03:35 CK-MB (CK-2) Rel Index 1.0 (0-4) 12/31/17 03:35 Troponin T < 0.010 ng/mL (0.00-0.029) 12/31/17 19:06 NT-Pro-B Natriuret Pep 1240 pg/mL (0-450) H 12/31/17 03:35 Total Protein 6.7 g/dL (6.3-8.2) 12/31/17 03:35 Albumin 3.6 g/dL (3.9-5) L 12/31/17 03:35 Albumin/Globulin Ratio 1.2 % 12/31/17 03:35 Triglycerides 111 mg/dL (2-149) 01/01/18 05:15 Cholesterol 146 mg/dL (50-199) 01/01/18 05:15 LDL Cholesterol Direct 95 mg/dL (50-130) 01/01/18 05:15 HDL Cholesterol 41 mg/dL (40-59) 01/01/18 05:15 Cholesterol/HDL Ratio 3.56 % 01/01/18 05:15 TSH 3.440 mlU/mL (0.270-4.200) 01/01/18 05:15
[2018-01-02] MEDS: LASIX IV SCH (06:32)
--- NOTE | 2018-01-02 07:21 | Progress Note ---
Assessment and Plan severe lv sys dysfunction. hfref. s/p icd convert to po lasix correct hypokalemia consider increase dose of coreg or losartan for bp control Subjective Date of service: 01/02/18 Interval history: echo reveals severe lv systolic dysfunction with an lvef of 20-25% no new card complaints resting quietly Objective Vital Signs Temp Pulse Pulse Pulse Resp Resp BP 01/02/18 05:25 98.1 F 77 18 142/105 01/01/18 23:39 98.5 F 84 18 114/63 01/01/18 22:34 77 115/76 01/01/18 22:08 90 20 01/01/18 21:58 95 H 20 01/01/18 21:30 18 01/01/18 19:31 75 01/01/18 19:16 98.4 F 77 18 115/76 01/01/18 16:00 98.3 F 68 16 131/79 01/01/18 12:13 72 122/88 01/01/18 11:57 98.2 F 74 16 118/82 01/01/18 10:00 72 16 01/01/18 09:00 74 01/01/18 08:04 98.1 F 72 16 122/88 01/01/18 07:23 75 18 Pulse Ox 01/02/18 05:25 93 01/01/18 23:39 98 01/01/18 22:34 01/01/18 22:08 01/01/18 21:58 01/01/18 21:30 98 01/01/18 19:31 01/01/18 19:16 92 01/01/18 16:00 97 01/01/18 12:13 01/01/18 11:57 93 01/01/18 10:00 97 01/01/18 09:00 01/01/18 08:04 94 01/01/18 07:23 - Physical Examination General: No Apparent Distress Neck: Negative: JVD/HJR Cardiac: Positive: Reg Rate and Rhythm Lungs: Positive: clear to auscultation Abdomen: Positive: Soft. Negative: Tender Skin: Positive: Clear, Rash, Wound Extremities: Absent: edema - Labs and Meds Lipids 01/01/18 Range/Units 05:15 Triglycerides 111 (2-149) mg/dL Cholesterol 146 (50-199) mg/dL HDL Cholesterol 41 (40-59) mg/dL Cholesterol/HDL Ratio 3.56 % CBC 01/01/18 Range/Units 05:15 WBC 6.3 (4.5-11.0) K/mm3 RBC 4.68 (3.65-5.03) M/mm3 Hgb 14.5 (11.8-15.2) gm/dl Hct 43.5 (35.5-45.6) % Plt Count 217 (140-440) K/mm3 Comprehensive Metabolic Panel 01/01/18 Range/Units 05:15 Sodium 141 (137-145) mmol/L Potassium 3.4 L (3.6-5.0) mmol/L Chloride 101.8 (98-107) mmol/L Carbon Dioxide 26 (22-30) mmol/L BUN 14 (9-20) mg/dL Creatinine 0.9 (0.8-1.5) mg/dL Glucose 203 H (75-100) mg/dL Calcium 8.9 (8.4-10.2) mg/dL - Imaging and Cardiology EKG: report reviewed, image reviewed Echo: pending
[2018-01-02] MEDS: DUONEB *Not for PRN Use IH SCH (08:10)
[2018-01-02] MEDS: HumaLOG SUB-Q SCH (08:46)
--- NOTE | 2018-01-02 09:17 | Progress Note ---
Assessment and Plan Assessment and plan: Patient is a 42-year-old man with a history of hypertension, previous history of diabetes not on any medications, and a pacemaker who presents to [facility] with ALEXEI at work last night. Patient c/o progressive worsening intermittent severe SOB with activity x 1 week that was not relieved by rest last night. There are no prior hospitalizations in our EMR. The SOB is associated with intermittent chest pressure without aggravating or alleviating factors. Patient also complains of worsening orthopnea. No calf tenderness, recent travel, or leg asymmetry. Patient has not taken any medications 1 year since his railcar carpenter told him everything was okay. Patient stopped the medications on his own. In the ED, patient's O2 sat will drop to 88-89% while sleeping. Patient placed on 2 L on nasal cannula. * 2v CXR reported as findings most consistent with early CHF -Acute on chronic HFrEF: Admitteed to telemetry, treated with iv lasix, ntg, consulted Cardiology, ordered and reviewed ECHO -Acute hypoxic respiratory failure due to CHF: treat with O2, nebs and treat the CHF -Chest pains: repeat troponin, get ECHO, consult Cardiology, ?ischemic evaluation once euvolemic -Accelerated hypertension with urgency: treat with iv hydralazine prn and lillian/ arb, cardiac diet -PPM: ?needs intergrating -Hypokalemia: replace, recheck in am, along with magnesium -Hyperglycemia, mild, history of Type 2 DM: check a1c, treat with ssi, ada diet -Mild Rhabdomyolysis, cpk 688: treat with lasix, repeat CPK in am, hold IVF due to CHF -Tobacco dependency: mortgage counselor on stopping -DVT prophylaxis: sq heparin O2 weaning trails today. Hopefully d/c soon if off o2 and cleared by Cardiology History Interval history: Patient was seen and examined. Follow-up on current diagnosis of sob. Overnight uneventful. Patient denies any chest pain, shortness breath, nausea/vomiting or severe headaches. Imaging, nursing note, chart, labs and old chart reviewed. Discussed with patient. Hospitalist Physical - Physical exam Narrative exam: GEN: WDWN, NAD, Awake, Alert, Orientated x 3 HEENT: NCAT, EOMI, PERRL, OP Clear NECK: supple, no adenopathy, no thyromegaly,+ JVD CVS/HEART: regular tachycardia, normal S1S2, pulses present bilaterally CHEST/LUNGS: diminished bs bilateral with bibasilar crackles Symmetrical chest expansion, good air entry bilaterally GI/Abdomen: soft, NTND, good bowel sounds, no guarding or rebound /Bladder: no suprapubic tenderness, no CVA or paraspinal tenderness EXT/Skin: no ble edema, no obvious rash MSK: FROM x 4 Neuro: CN 2-12 grossly intact, no new focal deficits Psych: calm - Constitutional Vitals: Temp Pulse Resp BP Pulse Ox 98.1 F 75 18 142/105 93 01/02/18 05:25 01/02/18 08:10 01/02/18 08:10 01/02/18 05:25 01/02/18 05:25 General appearance: Present: no acute distress Results - Labs CBC & Chem 7: 01/01/18 05:15 01/01/18 05:15 Labs: Laboratory Last Values WBC 6.3 K/mm3 (4.5-11.0) 01/01/18 05:15 RBC 4.68 M/mm3 (3.65-5.03) 01/01/18 05:15 Hgb 14.5 gm/dl (11.8-15.2) 01/01/18 05:15 Hct 43.5 % (35.5-45.6) 01/01/18 05:15 MCV 93 fl (84-94) 01/01/18 05:15 MCH 31 pg (28-32) 01/01/18 05:15 MCHC 33 % (32-34) 01/01/18 05:15 RDW 13.0 % (13.2-15.2) L 01/01/18 05:15 Plt Count 217 K/mm3 (140-440) 01/01/18 05:15 Lymph % (Auto) 23.2 % (13.4-35.0) 12/31/17 03:35 [place] % (Auto) 9.7 % (0.0-7.3) H 12/31/17 03:35 Eos % (Auto) 0.5 % (0.0-4.3) 12/31/17 03:35 Baso % (Auto) 0.6 % (0.0-1.8) 12/31/17 03:35 Lymph # 2.0 K/mm3 (1.2-5.4) 12/31/17 03:35 [place] # 0.8 K/mm3 (0.0-0.8) 12/31/17 03:35 Eos # 0.0 K/mm3 (0.0-0.4) 12/31/17 03:35 Baso # 0.1 K/mm3 (0.0-0.1) 12/31/17 03:35 Seg Neutrophils % 66.0 % (40.0-70.0) 12/31/17 03:35 Seg Neutrophils # 5.6 K/mm3 (1.8-7.7) 12/31/17 03:35 PT 14.5 Sec. (12.2-14.9) 12/31/17 03:35 INR 1.08 (0.87-1.13) 12/31/17 03:35 APTT 29.3 Sec. (24.2-36.6) 12/31/17 03:35 Sodium 141 mmol/L (137-145) 01/01/18 05:15 Potassium 3.4 mmol/L (3.6-5.0) L 01/01/18 05:15 Chloride 101.8 mmol/L (98-107) 01/01/18 05:15 Carbon Dioxide 26 mmol/L (22-30) 01/01/18 05:15 Anion Gap 17 mmol/L 01/01/18 05:15 BUN 14 mg/dL (9-20) 01/01/18 05:15 Creatinine 0.9 mg/dL (0.8-1.5) 01/01/18 05:15 Estimated GFR > 60 ml/min 01/01/18 05:15 BUN/Creatinine Ratio 16 % 01/01/18 05:15 Glucose 203 mg/dL (75-100) H 01/01/18 05:15 POC Glucose 210 (70-105) H 01/02/18 05:25 Hemoglobin A1c 6.3 % (4-6) H 12/31/17 03:12 Calcium 8.9 mg/dL (8.4-10.2) 01/01/18 05:15 Magnesium 1.60 mg/dL (1.7-2.3) L 01/01/18 05:15 Total Bilirubin 0.50 mg/dL (0.1-1.2) 12/31/17 03:35 AST 26 units/L (5-40) 12/31/17 03:35 ALT 20 units/L (7-56) 12/31/17 03:35 Alkaline Phosphatase 59 units/L (35-129) 12/31/17 03:35 Total Creatine Kinase 217 units/L (55-170) H 01/02/18 04:25 CK-MB (CK-2) 7.3 ng/mL (0.0-4.0) H 12/31/17 03:35 CK-MB (CK-2) Rel Index 1.0 (0-4) 12/31/17 03:35 Troponin T < 0.010 ng/mL (0.00-0.029) 12/31/17 19:06 NT-Pro-B Natriuret Pep 1240 pg/mL (0-450) H 12/31/17 03:35 Total Protein 6.7 g/dL (6.3-8.2) 12/31/17 03:35 Albumin 3.6 g/dL (3.9-5) L 12/31/17 03:35 Albumin/Globulin Ratio 1.2 % 12/31/17 03:35 Triglycerides 111 mg/dL (2-149) 01/01/18 05:15 Cholesterol 146 mg/dL (50-199) 01/01/18 05:15 LDL Cholesterol Direct 95 mg/dL (50-130) 01/01/18 05:15 HDL Cholesterol 41 mg/dL (40-59) 01/01/18 05:15 Cholesterol/HDL Ratio 3.56 % 01/01/18 05:15 TSH 3.440 mlU/mL (0.270-4.200) 01/01/18 05:15
[2018-01-02] MEDS: PROTONIX PO SCH (10:01)
[2018-01-02] MEDS: COZAAR PO SCH (10:01)
[2018-01-02] MEDS: ASPIRIN PO SCH (10:02)
[2018-01-02] MEDS: COREG PO SCH (10:02)
[2018-01-02] MEDS: HEPARIN SUB-Q SCH (10:04)
[2018-01-02 13:08] VITALS: BP 127/96
--- NOTE | 2018-01-02 13:25 | Discharge Summary ---
Providers - Providers Date of Admission: 12/31/17 06:42 Date of discharge: 01/02/18 Attending physician: JUDI MITCHELL 12/31/17 07:44 Consult to Physician [CONS] Routine Comment: JESSMERAZ NOTIFIED [id number] Consulting Provider: KATELIN BUSTOS Physician Instructions: Reason For Exam: CHF exacerbation, check PPM Primary care physician: SMALL BUSINESS DIRECTOR Hospitalization Condition: Stable Hospital course: Patient is a 42-year-old man with a history of hypertension, previous history of diabetes not on any medications, and a pacemaker who presents to [facility] ED with ALEXEI at work last night. Patient c/o progressive worsening intermittent severe SOB with activity x 1 week that was not relieved by rest last night. There are no prior hospitalizations in our EMR. The SOB is associated with intermittent chest pressure without aggravating or alleviating factors. Patient also complains of worsening orthopnea. No calf tenderness, recent travel, or leg asymmetry. 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 Patient stopped the medications on his own. In the ED, patient's O2 sat will drop to 88-89% while sleeping. Patient placed on 2 L on nasal cannula. * 2v CXR reported as findings most consistent with early CHF -Acute on chronic HFrEF: Admitteed to telemetry, treated with iv lasix, ntg, consulted Cardiology, ordered and reviewed ECHO -Acute hypoxic respiratory failure due to CHF: treat with O2, nebs and treat the CHF -Chest pains: repeat troponin, get ECHO, consult Cardiology, ?ischemic evaluation once euvolemic -Accelerated hypertension with urgency: treat with iv hydralazine prn and leelee/ arb, cardiac diet -PPM: ?needs intergrating -Hypokalemia: replace, recheck in am, along with magnesium -Hyperglycemia, mild, history of Type 2 DM: check a1c, treat with ssi, ada diet -Mild Rhabdomyolysis, cpk 688: treat with lasix, repeat CPK in am, hold IVF due to CHF -Tobacco dependency: chromosomal disorders counselor on stopping -DVT prophylaxis: sq heparin ok to discharge, d/w Dr. Evans Disposition: DC-01 TO HOME OR SELFCARE Time spent for discharge: 34 minutes Core Measure Documentation - Palliative Care Palliative Care/ Comfort Measures: Not Applicable - Core Measures Any of the following diagnoses?: heart failure - VTE Discharge Requirements Deep Vein Thrombosis/Pulmonary Embolism Present on Admission: No Has pt received <5 days of overlap therapy or INR<2.0: No Anticoagulant overlap therapy prescribed at discharge: No Contraindication No Overlap Therapy order at DC: Not Indicated - Heart Failure Discharge Requirements LEELEE/ARB for LVSD if EF <40%: Yes Beta etienne at discharge: Yes Exam - Physical Exam Narrative exam: GEN: WDWN, NAD, Awake, Alert, Orientated x 3 HEENT: NCAT, EOMI, PERRL, OP Clear NECK: supple, no adenopathy, no thyromegaly,+ JVD CVS/HEART: regular tachycardia, normal S1S2, pulses present bilaterally CHEST/LUNGS: diminished bs bilateral with bibasilar crackles improved, Symmetrical chest expansion, good air entry bilaterally GI/Abdomen: soft, NTND, good bowel sounds, no guarding or rebound /Bladder: no suprapubic tenderness, no CVA or paraspinal tenderness EXT/Skin: no ble edema, no obvious rash MSK: FROM x 4 Neuro: CN 2-12 grossly intact, no new focal deficits Psych: calm - Constitutional Vitals: Temp Pulse Resp BP Pulse Ox 97.9 F 76 16 127/96 94 01/02/18 11:26 01/02/18 11:26 01/02/18 11:26 01/02/18 11:26 01/02/18 11:26 Plan Activity: other (no strenous activity until cleared by Cardiology) Diet: low salt, diabetic Special Instructions: record blood sugar diary (three times a day) Follow up with: PRIMARY CAREMD [Primary Care Provider] - 7 Days KATELIN BUSTOS MD [Staff Physician] - 7 Days Prescriptions: Zolpidem [Ambien] 5 mg PO QHS PRN #10 tablet PRN Reason: Sleep ALBUTEROL Inhaler(NF) [VENTOLIN Inhaler(NF)] 2 puff IH Q4H PRN #1 unit PRN Reason: Shortness Of Breath Aspirin [Aspirin TAB] 325 mg PO QDAY #30 tablet Carvedilol [Coreg] 6.25 mg PO BID #60 tablet Furosemide [Lasix TAB] 40 mg PO BID #60 tablet Losartan [Cozaar] 25 mg PO QDAY #30 tablet metFORMIN [Glucophage] 500 mg PO BID #60 tablet
== END 2018-01-02 16:35 | disposition home or self-care (01) | DRG 291 ==
LOC: ED 22:48 → 4A 12-31 06:42
PROVIDERS: ADMIT Internal Medicine; ATTEND Internal Medicine
DX: I11.0 Hypertensive heart disease with heart failure (principal); J96.01 Acute respiratory failure with hypoxia; M62.82 Rhabdomyolysis; E87.6 Hypokalemia; E11.65 Type 2 diabetes mellitus with hyperglycemia; I42.9 Cardiomyopathy, unspecified; F10.10 Alcohol abuse, uncomplicated; I16.0 Hypertensive urgency; F17.200 Nicotine dependence, unspecified, uncomplicated; Z71.6 Tobacco abuse counseling; Z95.810 Presence of automatic (implantable) cardiac defibrillator; Z82.49 Family history of ischemic heart disease and other diseases of the circulatory system; Z91.14 Patient's other noncompliance with medication regimen; I50.23 Acute on chronic systolic (congestive) heart failure
CPT/HCPCS: 36415; 71046; 80048; 80053; 80061; 82550; 82553; 82962; 83036; 83735; 83880; 84443; 84484; 85025; 85027; 85610; 85730; 93005; 93010; 93306; 94640; 96374; J1644; J1815; J1940

== ENCOUNTER 2018-12-09 10:28 | Emergency (ER) | payer SELFPAY ==
--- NOTE | 2018-12-09 11:01 | Emergency Department Report ---
ED General Adult HPI - General Chief complaint: Dizziness Stated complaint: CRAMPING/LIGHTHEADED Time Seen by Provider: 12/09/18 10:43 Source: patient Mode of arrival: Ambulatory Limitations: No Limitations - History of Present Illness Initial comments: This is a pleasant 43-year-old man who at triage was somewhat to be complaining of leaning towards the left when he walks. The triage nurse asked me regarding the possibility of a code stroke. The symptoms occurred during the night. When I spoke to the patient he denied any left-sided leaning or weakness. He denied any focal weakness or numbness whatsoever. He was then saying that he felt generalized weakness and lightheadedness. Indeed he presumed that his electrolytes were out of order so he took extra magnesium and potassium. He also thought his stomach was bloated so he took 2 HCTZ last night. He stated this morning he felt weak and had an episode of diarrhea. He does not complain of abdominal pain. He denies fever or chills. He does have a history of electrolyte disorders. -: During the night Associated Symptoms: denies other symptoms, weakness, other (diarrhea) Treatments Prior to Arrival: other (self medicated as above) - Related Data Previous Rx's Medication Instructions Recorded Last Taken Type ALBUTEROL Inhaler(NF) [VENTOLIN 2 puff IH Q4H PRN #1 unit 01/02/18 Unknown Rx Inhaler(NF)] Acetaminophen [Acetaminophen TAB] 650 mg PO Q6H PRN #15 tablet 01/02/18 Unknown Rx Zolpidem [Ambien] 5 mg PO QHS PRN #10 tablet 01/02/18 Unknown Rx Aspirin 325 mg PO QDAY #30 tablet 01/28/18 Unknown Rx Carvedilol [Coreg] 6.25 mg PO BID #60 tablet 01/28/18 Unknown Rx Furosemide [Lasix TAB] 40 mg PO BID #60 tablet 01/28/18 Unknown Rx Losartan [Cozaar] 25 mg PO QDAY #30 tablet 01/28/18 Unknown Rx metFORMIN [Glucophage] 500 mg PO BID #60 tablet 01/28/18 Unknown Rx Allergies Allergy/AdvReac Type Severity Reaction Status Date / Time No Known Allergies Allergy Verified 01/27/18 20:11 ED Review of Systems ROS: Stated complaint: CRAMPING/LIGHTHEADED Other details as noted in HPI Constitutional: weakness. denies: chills, fever Eyes: denies: eye pain, eye discharge, vision change ENT: denies: ear pain, throat pain Respiratory: denies: cough, shortness of breath, wheezing Cardiovascular: denies: chest pain, palpitations Endocrine: no symptoms reported Gastrointestinal: diarrhea. denies: abdominal pain (some bloating), nausea Genitourinary: denies: urgency, dysuria Musculoskeletal: denies: back pain, joint swelling, arthralgia Skin: denies: rash, lesions Neurological: abnormal gait (states actually lightheadedness). denies: headache, weakness, numbness, paresthesias, confusion, vertigo Psychiatric: denies: anxiety, depression Hematological/Lymphatic: denies: easy bleeding, easy bruising ED Past Medical Hx - Past Medical History Previous Medical History?: Yes Hx Hypertension: Yes (noncompliant) Hx Congestive Heart Failure: Yes Hx Diabetes: Yes (noncompliant with meds) Hx Asthma: No Hx Tuberculosis: No Additional medical history: cardiac pacemaker - Surgical History Past Surgical History?: Yes Hx Pacemaker: Yes Hx Internal Defibrillator: Yes (10 years ago) Additional Surgical History: cardiac pacemaker - Social History Smoking Status: Current Every Day Smoker Substance Use Type: Alcohol - Medications Home Medications: Home Medications Medication Instructions Recorded Confirmed Last Taken Type ALBUTEROL Inhaler(NF) [VENTOLIN 2 puff IH Q4H PRN #1 unit 01/02/18 Unknown Rx Inhaler(NF)] Acetaminophen [Acetaminophen TAB] 650 mg PO Q6H PRN #15 tablet 01/02/18 Unknown Rx Zolpidem [Ambien] 5 mg PO QHS PRN #10 tablet 01/02/18 Unknown Rx Aspirin 325 mg PO QDAY #30 tablet 01/28/18 Unknown Rx Carvedilol [Coreg] 6.25 mg PO BID #60 tablet 01/28/18 Unknown Rx Furosemide [Lasix TAB] 40 mg PO BID #60 tablet 01/28/18 Unknown Rx Losartan [Cozaar] 25 mg PO QDAY #30 tablet 01/28/18 Unknown Rx metFORMIN [Glucophage] 500 mg PO BID #60 tablet 01/28/18 Unknown Rx ED Physical Exam - General Limitations: No Limitations General appearance: alert, in no apparent distress - Head Head exam: Present: atraumatic, normocephalic - Eye Eye exam: Present: normal appearance. Absent: scleral icterus - ENT ENT exam: Present: mucous membranes moist - Neck Neck exam: Present: normal inspection - Respiratory Respiratory exam: Present: normal lung sounds bilaterally. Absent: respiratory distress - Cardiovascular Cardiovascular Exam: Present: regular rate, normal rhythm. Absent: systolic murmur, diastolic murmur, rubs, gallop - GI/Abdominal GI/Abdominal exam: Present: soft, normal bowel sounds. Absent: distended, tenderness, guarding, rebound, rigid - Rectal Rectal exam: Present: deferred - Extremities Exam Extremities exam: Present: normal inspection - Back Exam Back exam: Present: normal inspection - Neurological Exam Neurological exam: Present: alert, oriented X3, CN II-XII intact. Absent: motor sensory deficit - Psychiatric Psychiatric exam: Present: normal affect, normal mood - Skin Skin exam: Present: warm, dry, intact, normal color. Absent: rash ED Course Vital Signs 12/09/18 12/09/18 12/09/18 10:40 10:51 10:57 Temperature 98.3 F Pulse Rate 74 62 Respiratory 16 18 18 Rate Blood Pressure 113/80 Blood Pressure 113/80 [Left] O2 Sat by Pulse 96 98 97 Oximetry - Reevaluation(s) Reevaluation #1: Patient was observed walking. He did fairly well. He was told that if he really is having problems walking that we should put him in the hospital for further workup for possible stroke. He states that he does not want to be admitted. He understands the risk and benefit. He states he just wants a work excuse for today and will go back to work tomorrow. He has ample mental capacity to make this decision. Thus, he will be discharged. 12/09/18 12:48 ED Medical Decision Making - Lab Data Result diagrams: 12/09/18 Unknown 12/09/18 Unknown Laboratory Results - last 24 hr 12/09/18 12/09/18 12/09/18 10:42 11:41 Unknown WBC 6.2 RBC 5.32 H Hgb 16.8 H Hct 49.6 H MCV 93 MCH 32 MCHC 34 RDW 13.1 L Plt Count 215 Lymph % (Auto) 14.0 [place] % (Auto) 11.5 H Eos % (Auto) 1.3 Baso % (Auto) 0.5 Lymph # 0.9 L [place] # 0.7 Eos # 0.1 Baso # 0.0 Seg Neutrophils % 72.7 H Seg Neutrophils # 4.5 PT INR APTT Sodium Potassium Chloride Carbon Dioxide Anion Gap BUN Creatinine Estimated GFR BUN/Creatinine Ratio Glucose POC Glucose 135 H Calcium Magnesium 1.30 L Total Bilirubin Direct Bilirubin Indirect Bilirubin AST ALT Alkaline Phosphatase Total Creatine Kinase CK-MB (CK-2) CK-MB (CK-2) Rel Index Troponin T < 0.010 NT-Pro-B Natriuret Pep 1115 H Total Protein Albumin Albumin/Globulin Ratio 12/09/18 12/09/18 Unknown Unknown WBC RBC Hgb Hct MCV MCH MCHC RDW Plt Count Lymph % (Auto) [place] % (Auto) Eos % (Auto) Baso % (Auto) Lymph # [place] # Eos # Baso # Seg Neutrophils % Seg Neutrophils # PT 13.4 INR 1.05 APTT 23.0 L Sodium 143 Potassium 3.7 Chloride 98.0 Carbon Dioxide 30 Anion Gap 19 BUN 21 H Creatinine 1.4 Estimated GFR > 60 BUN/Creatinine Ratio 15 Glucose 197 H POC Glucose Calcium 9.7 Magnesium Total Bilirubin 0.60 Direct Bilirubin < 0.2 Indirect Bilirubin 0.4 AST 33 ALT 45 Alkaline Phosphatase 68 Total Creatine Kinase 324 H CK-MB (CK-2) 3.9 CK-MB (CK-2) Rel Index 1.2 Troponin T NT-Pro-B Natriuret Pep Total Protein 8.3 H Albumin 4.3 Albumin/Globulin Ratio 1.1 - EKG Data -: EKG Interpreted by Me EKG shows normal: sinus rhythm Rate: normal - EKG Data Interpretation: nonspecific ST-T wave erna, LVH Critical care attestation.: If time is entered above; I have spent that time in minutes in the direct care of this critically ill patient, excluding procedure time. 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 Further evaluation with your primary care provider is recommended. If you decide to have this done in the hospital he may return and further evaluation can be performed. Referrals: PRIMARY CARE, [Primary Care Provider] - 3-5 Days Forms: Work/School Release Form(ED) Time of Disposition: 12:51
--- NOTE | 2018-12-09 11:21 | XRay Report ---
CHEST 1 VIEW INDICATION: hypertension. COMPARISON: 01/27/2018 report FINDINGS: Support devices: 2-lead pacemaker device appears in good position. Heart: Within normal limits. Lungs/Pleura: No acute air space or interstitial disease. Additional findings: None. IMPRESSION: No acute findings. Signer Name: Adrian Henry Jr, MD Signed: 12/09/2018 11:17 AM Workstation Name: [id number]
--- NOTE | 2018-12-09 11:32 | Cat Scan Report ---
CT HEAD WITHOUT CONTRAST INDICATION / CLINICAL INFORMATION: Gait disturbance to left, dizziness since last night. TECHNIQUE: Axial imaging performed from the skull apex through the skull base without the use of cont rast. Sagittal and coronal reformatted images. All CT scans at this location are performed using CT dose reduction for ALARA by means of automated exposure control. COMPARISON: None available. FINDINGS: CEREBRAL PARENCHYMA: No significant abnormality. No acute territorial infarct. HEMORRHAGE: None. EXTRA-AXIAL SPACES: Normal in size and morphology for the patient's age. VENTRICULAR SYSTEM: Normal in size and morphology for the patient's age. MIDLINE SHIFT OR HERNIATION: None. CEREBELLUM / BRAINSTEM: No significant abnormality. CALVARIUM: No significant abnormality. ORBITS: Normal as visualized. PARANASAL SINUSES / MASTOID AIR CELLS: Normal as visualized. SOFT TISSUES of HEAD: No significant abnormality. ADDITIONAL FINDINGS: None. IMPRESSION: No acute intracranial abnormality. Signer Name: Adrian Henry Jr, MD Signed: 12/09/2018 11:28 AM Workstation Name: [id number]
[2018-12-09 11:35] LABS: Basophils % (Auto) 0.5 % (0.0-1.8); Eosinophils # (Auto) 0.1 K/mm3 (0.0-0.4); Eosinophils % (Auto) 1.3 % (0.0-4.3); Hematocrit 49.6 % (35.5-45.6); Hemoglobin 16.8 gm/dl (11.8-15.2); Lymphocytes # (Auto) 0.9 K/mm3 (1.2-5.4); Mean Corpuscular HGB Conc 34 % (32-34); Mean Corpuscular Volume 93 fl (84-94); Monocytes # (Auto) 0.7 K/mm3 (0.0-0.8); Monocytes % (Auto) 11.5 % (0.0-7.3); Platelet Count 215 K/mm3 (140-440); Red Blood Count 5.32 M/mm3 (3.65-5.03); Red Cell Distribution Width 13.1 % (13.2-15.2)
[2018-12-09 11:45] LABS: INR 1.05 (0.87-1.13)
[2018-12-09 12:01] LABS: Alanine Aminotransferase 45 units/L (7-56); Albumin 4.3 g/dL (3.9-5); BUN/Creatinine Ratio 15; Blood Urea Nitrogen 21 mg/dL (9-20); Calcium 9.7 mg/dL (8.4-10.2); Creatine Kinase MB 3.9 ng/mL (0.0-4.0); Hemolysis Index 7
[2018-12-09 12:13] LABS: Bilirubin,Direct < 0.2 mg/dL (0-0.2)
[2018-12-09 12:55] LABS: Amphetamine Screen,Urine PRESUMPTIVE NEGATIVE; Benzodiazepines Screen,Urine PRESUMPTIVE NEGATIVE; Cannabinoid Screen,Urine PRESUMPTIVE NEGATIVE; Methadone Screen,Urine PRESUMPTIVE NEGATIVE; Opiate Screen,Urine PRESUMPTIVE NEGATIVE
[2018-12-09 12:57] LABS: Mucus,Urine FEW /HPF
[2018-12-09 12:58] LABS: Bilirubin,Urine NEG (Negative); Blood,Urine NEG (Negative); Color,Urine Straw (Yellow); Hyaline Casts,Urine 23 /LPF; Protein,Urine <15 mg/dL mg/dL (Negative); Urobilinogen,Urine < 2.0 mg/dL (<2.0)
[2018-12-09 13:11] VITALS: BP 129/88
[2018-12-09 13:14] LABS: Cocaine Screen,Urine PRESUMPTIVE POSITIVE
== END 2018-12-09 13:10 | disposition home or self-care (01) ==
LOC: ED 10:28
DX: E11.69 Type 2 diabetes mellitus with other specified complication (principal); I42.9 Cardiomyopathy, unspecified; I10 Essential (primary) hypertension; I11.0 Hypertensive heart disease with heart failure; I50.9 Heart failure, unspecified; F17.200 Nicotine dependence, unspecified, uncomplicated; Z95.818 Presence of other cardiac implants and grafts
CPT/HCPCS: 36415; 70450; 71045; 80048; 80076; 80307; 81001; 82550; 82553; 82962; 83735; 83880; 84484; 85025; 85610; 85730; 93005; 93010

== ENCOUNTER 2019-02-21 15:53 | Emergency (ER) | payer OTHER ==
[2019-02-21 16:10] VITALS: BP 126/83
--- NOTE | 2019-02-21 18:34 | Emergency Department Report ---
ED Rash HPI - HPI Chief Complaint: Urogenital-Male Stated Complaint: GENITAL ITCHING Time Seen by Provider: 02/21/19 18:25 Duration: 5 Days Location: Other (genitalia) Rash Symptoms: Yes Itching, No Facial Swelling, No Tongue/Oral Swelling, No Breathing Difficulties, No Choking Sensation, No Wheezing/Dyspnea, No Peeling, No Blistering, No Fever Severity: moderate Other History: pt presents to ED c/o rash and itching to genital area x 1 week. He states he thinks he has jock itch. he has been using otc meds without any relief. He denies any penile d/c, uti symptom or pain. He has hx of DM. Does not routinely check his BS. ED Review of Systems ROS: Stated complaint: GENITAL ITCHING Other details as noted in HPI Comment: All other systems reviewed and negative Skin: rash, pruritus ED Past Medical Hx - Past Medical History Previous Medical History?: Yes Hx Hypertension: Yes (noncompliant) Hx Congestive Heart Failure: Yes Hx Diabetes: Yes (noncompliant with meds) Hx Asthma: No Hx Tuberculosis: No Additional medical history: cardiac pacemaker - Surgical History Past Surgical History?: Yes Hx Pacemaker: Yes Hx Internal Defibrillator: Yes (10 years ago) Additional Surgical History: cardiac pacemaker - Social History Smoking Status: Current Some Day Smoker Substance Use Type: None - Medications Home Medications: Home Medications Medication Instructions Recorded Confirmed Last Taken Type ALBUTEROL Inhaler(NF) [VENTOLIN 2 puff IH Q4H PRN #1 unit 01/02/18 Unknown Rx Inhaler(NF)] Acetaminophen [Acetaminophen TAB] 650 mg PO Q6H PRN #15 tablet 01/02/18 Unknown Rx Zolpidem [Ambien] 5 mg PO QHS PRN #10 tablet 01/02/18 Unknown Rx Aspirin 325 mg PO QDAY #30 tablet 01/28/18 Unknown Rx Carvedilol [Coreg] 6.25 mg PO BID #60 tablet 01/28/18 Unknown Rx Furosemide [Lasix TAB] 40 mg PO BID #60 tablet 01/28/18 Unknown Rx Losartan [Cozaar] 25 mg PO QDAY #30 tablet 01/28/18 Unknown Rx metFORMIN [Glucophage] 500 mg PO BID #60 tablet 01/28/18 Unknown Rx Clotrimazole [Clotrimazole AF] 28 gm TP BID 14 Days #1 cream..g. 02/21/19 Unknown Rx Fluconazole [Diflucan TAB] 100 mg PO QDAY 7 Days #7 tablet 02/21/19 Unknown Rx Rash Exam - Exam General: Vital signs noted. No distress. Alert and acting appropriately. HEENT: No Periorbital Edema, No Conjuctival Injection, No Chemosis, No Perioral Edema, No Tongue Edema, No Uvular Edema, No Compromised Airway, No Drooling Lungs: Yes Good Air Exchange (Normal Breath Sounds), No Wheezes, No Ronchi, No Stridor, No Cough, No Labored Respirations, No Retractions, No Use of Accessory Muscles, No Other Abnormal Lung Sounds Heart: Yes Regular, No Murmur Skin: Yes Other (mildly erythematous maculopapular exocoriated rash noted to scrotum, perineum and mildly left groin. No signs of bacterial infection) Other: Positive: Neurologic Normal ED Course Vital Signs 02/21/19 16:06 Temperature 98.6 F Pulse Rate 76 Respiratory 18 Rate Blood Pressure 126/83 O2 Sat by Pulse 98 Oximetry Critical care attestation.: If time is entered above; I have spent that time in minutes in the direct care of this critically ill patient, excluding procedure time. ED Disposition Clinical Impression: Tinea cruris Disposition: DC-01 TO HOME OR SELFCARE Is pt being admited?: No Does the pt Need Aspirin: No Condition: Stable Instructions: Dilan Santa (ED) Prescriptions: Clotrimazole [Clotrimazole AF] 28 gm TP BID 14 Days #1 cream..g. Fluconazole [Diflucan TAB] 100 mg PO QDAY 7 Days #7 tablet Forms: Work/School Release Form(ED)
== END 2019-02-21 19:40 | disposition home or self-care (01) ==
LOC: ED 15:53
DX: B35.6 Tinea cruris (principal); I11.0 Hypertensive heart disease with heart failure; I50.9 Heart failure, unspecified; E11.9 Type 2 diabetes mellitus without complications; F17.200 Nicotine dependence, unspecified, uncomplicated; Z95.0 Presence of cardiac pacemaker; Z91.14 Patient's other noncompliance with medication regimen; Z79.899 Other long term (current) drug therapy
CPT/HCPCS: 82962

== ENCOUNTER 2020-03-23 16:56 | Emergency (ER) | payer OTHER, SELFPAY ==
[2020-03-23] MEDS ORDERED: ACETAMINOPHEN 325 MG TAB PO ONE (17:43)
--- NOTE | 2020-03-23 17:43 | Emergency Department Report ---
- General Chief Complaint: Upper Respiratory Infection Stated Complaint: FLU SX Time Seen by Provider: 03/23/20 17:33 Source: patient Mode of arrival: Ambulatory Limitations: No Limitations - History of Present Illness Initial Comments: Patient is a 44-year-old F Stateless male with past medical history of hypertension diabetes and congestive heart failure who is presenting with body aches cold chills and a nonproductive cough for the last 3 days. Patient states he works at the [employer] and has been exposed to many people but none that he knows that has COVID-19 or the flu in particular. Patient denies any nausea vomiting or diarrhea. He states he is getting cold chills but has not taken objective temperature as of yet. Patient has minimal shortness of breath occasi onally but this is not consistent - Related Data Previous Rx's Medication Instructions Recorded Last Taken Type ALBUTEROL Inhaler(NF) [VENTOLIN 2 puff IH Q4H PRN #1 unit 01/02/18 Unknown Rx Inhaler(NF)] Acetaminophen [Acetaminophen TAB] 650 mg PO Q6H PRN #15 tablet 01/02/18 Unknown Rx Zolpidem [Ambien] 5 mg PO QHS PRN #10 tablet 01/02/18 Unknown Rx Aspirin 325 mg PO QDAY #30 tablet 01/28/18 Unknown Rx Furosemide [Lasix TAB] 40 mg PO BID #60 tablet 01/28/18 Unknown Rx Losartan [Cozaar] 25 mg PO QDAY #30 tablet 01/28/18 Unknown Rx carvediloL [Coreg] 6.25 mg PO BID #60 tablet 01/28/18 Unknown Rx metFORMIN [Glucophage] 500 mg PO BID #60 tablet 01/28/18 Unknown Rx Clotrimazole [Clotrimazole AF] 28 gm TP BID 14 Days #1 cream..g. 02/21/19 Unknown Rx Fluconazole [Diflucan TAB] 100 mg PO QDAY 7 Days #7 tablet 02/21/19 Unknown Rx Albuterol Mdi (or & Nicu Only) 2 puff IH QID PRN #1 inhalation 03/23/20 Unknown Rx [ProAir HFA Inhaler] Azithromycin [Zithromax Z-JEFF] 250 mg PO DAILY #6 tablet 03/23/20 Unknown Rx Benzonatate [Tessalon Perles] 100 mg PO Q8HR #10 capsule 03/23/20 Unknown Rx HYDROcodone/APAP 5-325 [Diamond 1 each PO Q6HR PRN #14 tablet 03/23/20 Unknown Rx 5/325] Allergies Allergy/AdvReac Type Severity Reaction Status Date / Time No Known Allergies Allergy Verified 01/27/18 20:11 ED Review of Systems ROS: Stated complaint: FLU SX Other details as noted in HPI Comment: All other systems reviewed and negative ED Past Medical Hx - Past Medical History Previous Medical History?: Yes Hx Hypertension: Yes (noncompliant) Hx Congestive Heart Failure: Yes Hx Diabetes: Yes (noncompliant with meds) Hx Asthma: No Hx Tuberculosis: No Additional medical history: cardiac pacemaker - Surgical History Past Surgical History?: Yes Hx Pacemaker: Yes Hx Internal Defibrillator: Yes (10 years ago) Additional Surgical History: cardiac pacemaker - Social History Smoking Status: Never Smoker Substance Use Type: None - Medications Home Medications: Home Medications Medication Instructions Recorded Confirmed Last Taken Type ALBUTEROL Inhaler(NF) [VENTOLIN 2 puff IH Q4H PRN #1 unit 01/02/18 Unknown Rx Inhaler(NF)] Acetaminophen [Acetaminophen TAB] 650 mg PO Q6H PRN #15 tablet 01/02/18 Unknown Rx Zolpidem [Ambien] 5 mg PO QHS PRN #10 tablet 01/02/18 Unknown Rx Aspirin 325 mg PO QDAY #30 tablet 01/28/18 Unknown Rx Furosemide [Lasix TAB] 40 mg PO BID #60 tablet 01/28/18 Unknown Rx Losartan [Cozaar] 25 mg PO QDAY #30 tablet 01/28/18 Unknown Rx carvediloL [Coreg] 6.25 mg PO BID #60 tablet 01/28/18 Unknown Rx metFORMIN [Glucophage] 500 mg PO BID #60 tablet 01/28/18 Unknown Rx Clotrimazole [Clotrimazole AF] 28 gm TP BID 14 Days #1 cream..g. 02/21/19 Unknown Rx Fluconazole [Diflucan TAB] 100 mg PO QDAY 7 Days #7 tablet 02/21/19 Unknown Rx Albuterol Mdi (or & Nicu Only) 2 puff IH QID PRN #1 inhalation 03/23/20 Unknown Rx [ProAir HFA Inhaler] Azithromycin [Zithromax Z-JEFF] 250 mg PO DAILY #6 tablet 03/23/20 Unknown Rx Benzonatate [Tessalon Perles] 100 mg PO Q8HR #10 capsule 03/23/20 Unknown Rx HYDROcodone/APAP 5-325 [Diamond 1 each PO Q6HR PRN #14 tablet 03/23/20 Unknown Rx 5/325] ED Physical Exam - General Limitations: No Limitations General appearance: alert, in no apparent distress - Head Head exam: Present: atraumatic, normocephalic - Eye Eye exam: Present: normal appearance, PERRL, EOMI - ENT ENT exam: Present: normal orophraynx, mucous membranes dry, mucous membranes moist - Neck Neck exam: Present: normal inspection - Respiratory Respiratory exam: Present: normal lung sounds bilaterally. Absent: respiratory distress, wheezes, rales, rhonchi - Cardiovascular Cardiovascular Exam: Present: regular rate, normal rhythm, normal heart sounds. Absent: systolic murmur, diastolic murmur, rubs, gallop - GI/Abdominal GI/Abdominal exam: Present: soft, normal bowel sounds. Absent: distended, tenderness, guarding, rebound, rigid - Rectal Rectal exam: Present: deferred - Extremities Exam Extremities exam: Present: normal inspection - Back Exam Back exam: Present: normal inspection - Neurological Exam Neurological exam: Present: alert, oriented X3 - Psychiatric Psychiatric exam: Present: normal affect, normal mood - Skin Skin exam: Present: warm, dry, intact, normal color. Absent: rash ED Course Vital Signs 03/23/20 03/23/20 17:12 18:04 Temperature 100.3 F H Pulse Rate 99 H Respiratory 20 16 Rate Blood Pressure 151/108 O2 Sat by Pulse 95 Oximetry ED Medical Decision Making - Radiology Data [facility] me: [facility] Physician: RAMONITA OWENS MD Date of Service: 03/23/20 Procedure(s): XR chest 1V ap Accession Number(s): [id number] cc: RAMONITA OWENS MD Fluoro Time In Minutes: CHEST 1 VIEW 5:36 PM INDICATION / CLINICAL INFORMATION: Cough. COMPARISON: 12/09/18. FINDINGS: SUPPORT DEVICES: The position of the dual chamber left subclavian ICD has not changed. HEART / MEDIASTINUM: Mild cardiomegaly is stable. There is aortic tortuosity without aneurysm. Pulmonary vasculature is normal. LUNGS / PLEURA: No significant pulmonary or pleural abnormality. No pneumothorax. ADDITIONAL FINDINGS: No significant additional findings. IMPRESSION: No acute abnormality or significant change. Signer Name: Mane Pisano MD Signed: 03/23/2020 6:19 PM Workstation Name: [id number] - Medical Decision Making Home patient is a 44-year-old F Stateless male hypertension diabetes congestive heart failure who states that has had a fever body aches and cough for last several days. States he has had several episodes where he is short of breath but he feels no shortness of breath is more from his congestive heart failure. Patient states he has been noncompliant with his Lasix. States that he does feel as though he is fluid overloaded and is heavier than normal. Patient was given Lasix 40 mg here in emergency department. Had the patient ambulate and is post ambulatory O2 sat was 93%. After sitting down he yajaira to 97% and did not appear to be in any respiratory distress. Told the patient that he needs to return to if he becomes more short of breath. Suggested that the patient get outpatient COVID-19 testing and a pulse ox for home use. Patient because of his comorbidities will be started on a Z-Jeff and given medication for symptomatic relief. Patient discharged home. Critical care attestation.: If time is entered above; I have spent that time in minutes in the direct care of this critically ill patient, excluding procedure time. ED Disposition Clinical Impression: Suspected COVID-19 virus infection CHF exacerbation Qualifiers: Heart failure type: unspecified Qualified Code(s): I50.9 - Heart failure, unspecified Acute bronchitis Qualifiers: Bronchitis organism: unspecified organism Qualified Code(s): J20.9 - Acute bronchitis, unspecified Disposition: DC-01 TO HOME OR SELFCARE Is pt being admited?: No Does the pt Need Aspirin: No Condition: Stable Instructions: Acute Bronchitis (ED), Acute Bronchitis, Adult, [id number], Heart Failure, Self Care, [id number] Additional Instructions: Please try to buy a portable home pulse oximeter. If your oxygen level while sitting still is less than 90% please return to the emergency department. Referrals: EM DYER MD [Referring] - 3-5 Days Forms: Work/School Release Form(ED) Time of Disposition: 18:55
--- NOTE | 2020-03-23 18:24 | XRay Report ---
CHEST 1 VIEW 5:36 PM INDICATION / CLINICAL INFORMATION: Cough. COMPARISON: 12/09/18. FINDINGS: SUPPORT DEVICES: The position of the dual chamber left subclavian ICD has not changed. HEART / MEDIASTINUM: Mild cardiomegaly is stable. There is aortic tortuosity without aneurysm. Pulmon savanna vasculature is normal. LUNGS / PLEURA: No significant pulmonary or pleural abnormality. No pneumothorax. ADDITIONAL FINDINGS: No significant additional findings. IMPRESSION: No acute abnormality or significant change. Signer Name: Mane Pisano MD Signed: 03/23/2020 6:19 PM Workstation Name: [id number]
[2020-03-23] MEDS ORDERED: FUROSEMIDE 20 MG TAB PO ONE (18:52)
[2020-03-23 19:13] VITALS: BP 165/100
== END 2020-03-23 19:21 | disposition home or self-care (01) ==
LOC: ED 16:56
DX: I11.0 Hypertensive heart disease with heart failure (principal); I50.9 Heart failure, unspecified; J20.9 Acute bronchitis, unspecified; Z20.828 Contact with and (suspected) exposure to other viral communicable diseases
CPT/HCPCS: 71045; 99283

== ENCOUNTER 2020-04-02 15:03 | Emergency (ER) | payer SELFPAY | END 2020-04-02 16:55 | disposition left against medical advice (07) | LOC: ED 15:03 | DX: Z00.8 Encounter for other general examination (principal); Z53.21 Procedure and treatment not carried out due to patient leaving prior to being seen by health care provider ==

== ENCOUNTER 2021-04-09 11:29 | Emergency (ER) | payer MEDICARE ==
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
[2021-04-09 15:22] VITALS: BP 149/112
--- NOTE | 2021-04-10 13:28 | Electrocardiograph Report ---
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
== END 2021-04-09 15:23 | disposition home or self-care (01) ==
LOC: ED 11:29
DX: R07.89 Other chest pain (principal); F17.200 Nicotine dependence, unspecified, uncomplicated; Z91.041 Radiographic dye allergy status; I10 Essential (primary) hypertension; E11.8 Type 2 diabetes mellitus with unspecified complications; V49.50XA Passenger injured in collision with unspecified motor vehicles in traffic accident, initial encounter; Y93.89 Activity, other specified; Y92.89 Other specified places as the place of occurrence of the external cause; Y99.8 Other external cause status
CPT/HCPCS: 71046; 93005; 99283